=== PATIENT | male | born 2000 | race Caucasian/White ===

== ENCOUNTER 2023-04-04 13:12 | Emergency (ER) | payer OTHER ==
[~2023-04-04] VITALS: Ht 193 cm; Wt 81.7 kg
[~2023-04-04 13:12] MED LIST: AZIT100SU
[2023-04-04] MEDS ORDERED: SILDENAFIL20 MG PO (13:24)
[2023-04-04] MEDS ORDERED: Tetanus and Diphtheria Toxoid 0.5 ML INJ IM ONE (13:25)
[2023-04-04] MEDS ORDERED: Ketorolac Tromethamine 10 MG Tab PO ONE (13:40)
== END 2023-04-04 14:37 | disposition home or self-care (01) ==
LOC: ER 13:12
DX: S61.211A Laceration without foreign body of left index finger without damage to nail, initial encounter (principal); W22.8XXA Striking against or struck by other objects, initial encounter
CPT/HCPCS: 12001; 90471; 90714; 99282-25; A9270